=== PATIENT | female | born 1955 | race African-American/Black ===

== ENCOUNTER 2017-06-07 12:33 | Emergency (ER) | payer OTHER ==
--- NOTE | 2017-06-07 13:27 | ER Document Report ---
ED Eye Complaint - General Chief Complaint: Redness of Eye Stated Complaint: EYE PAIN Time Seen by Provider: 06/07/17 13:10 Mode of Arrival: Ambulatory Information source: Patient Notes: Patient is a 61-year-old female who presents to the ER today for 1 week of redness to her right eye. Patient also admits to 1 day of headache "like a headband is on my head but it is not." Patient denies any blurred vision, pain to the eyes, numbness or tingling anywhere, weakness anywhere. Patient denies any injury to her eye. She denies any history of migraines. - Related Data Allergies/Adverse Reactions: No Known Allergies Allergy (Unverified 06/07/17 12:34) Past Medical History - General Information source: Patient - Social History Smoking Status: Never Smoker Chew tobacco use (# tins/day): No Frequency of alcohol use: None Drug Abuse: None Family History: Reviewed & Not Pertinent Patient has suicidal ideation: No Patient has homicidal ideation: No Renal/ Medical History: Denies: Hx Peritoneal Dialysis Review of Systems - Review of Systems Constitutional: No symptoms reported EENT: See HPI Cardiovascular: No symptoms reported Respiratory: No symptoms reported Gastrointestinal: No symptoms reported Genitourinary: No symptoms reported Female Genitourinary: No symptoms reported Musculoskeletal: No symptoms reported Skin: No symptoms reported Hematologic/Lymphatic: No symptoms reported Neurological/Psychological: See HPI Physical Exam - Vital signs Vitals: Temp Pulse Resp BP Pulse Ox 98.5 F 57 L 20 139/78 H 98 06/07/17 12:38 06/07/17 12:38 06/07/17 12:38 06/07/17 12:38 06/07/17 12:38 - Notes Notes: PHYSICAL EXAMINATION: GENERAL: Well-appearing and in no acute distress. HEAD: Atraumatic, normocephalic. EYES: Subconjunctival hemorrhage to medial portion of right eye, not crossing over into the cornea, less than 1/2 scleral involvment, pupils equal round and reactive to light, extraocular movements intact, sclera anicteric ENT: ear canals without erythema or foreign body, TMs pearly ware with good bony landmarks, nares patent, oropharynx clear without exudates. Moist mucous membranes. no tenderness to orbits or maxillary sinuses NECK: Normal range of motion, supple without lymphadenopathy LUNGS: CTAB and equal. No wheezes rales or rhonchi. HEART: Regular rate and rhythm without murmurABDOMEN: Soft, no tenderness. No guarding, no rebound BACK: no vertebral tenderness, normal ROM GI/: no CVA tenderness EXTREMITIES: Normal range of motion, no pitting edema. No cyanosis. NEUROLOGICAL: Cranial nerves grossly intact. Normal sensory/motor exams. PSYCH: Normal mood, normal affect. SKIN: Warm, Dry, normal turgor, no rashes or lesions noted Course - Vital Signs Vital signs: Temp Pulse Resp BP Pulse Ox 98.3 F 57 L 16 138/68 H 98 06/07/17 15:15 06/07/17 12:38 06/07/17 15:15 06/07/17 15:15 06/07/17 15:15 Discharge - Discharge Clinical Impression: Subconjunctival hemorrhage of right eye Headache Qualifiers: Headache type: unspecified Headache chronicity pattern: acute headache Intractability: not intractable Qualified Code(s): R51 - Headache Condition: Stable Disposition: HOME, SELF-CARE Additional Instructions: Return immediately for any new or worsening symptoms. Follow up with claim administrator, call tomorrow to make followup appointment. Referrals: ALBERTA PACK DO [ACTIVE STAFF] - Follow up as needed
--- NOTE | 2017-06-07 14:10 | RADIOLOGY REPORT (SQ) ---
EXAM DESCRIPTION: CT HEAD WITHOUT COMPLETED DATE/TIME: 06/07/2017 1:47 pm REASON FOR STUDY: vice like headache, bloodshot eye COMPARISON: None. TECHNIQUE: Axial images acquired through the brain without intravenous contrast. Images reviewed wi th bone, brain and subdural windows. Images stored on PACS. All CT scanners at this facility use dose modulation, iterative reconstruction, and/or weight based d osing when appropriate to reduce radiation dose to as low as reasonably achievable (ALARA). [facility]: Dose Right [facility]: CareDose [facility]: Dose Right [facility]: Teradose 4D [facility]: Bug Music RADIATION DOSE: 64.6 mGy. LIMITATIONS: None. FINDINGS: VENTRICLES: Normal size and contour. CEREBRUM: No masses. No hemorrhage. No midline shift. No evidence for acute infarction. Normal gra y/white matter differentiation. No areas of low density in the white matter. CEREBELLUM: No masses. No hemorrhage. No alteration of density. No evidence for acute infarction. EXTRAAXIAL SPACES: No fluid collections. No masses. ORBITS AND GLOBE: No intra- or extraconal masses. Normal contour of globe without masses. CALVARIUM: No fracture. PARANASAL SINUSES: No fluid or mucosal thickening. SOFT TISSUES: No mass or hematoma. OTHER: No other significant finding. IMPRESSION: NORMAL BRAIN CT WITHOUT CONTRAST. EVIDENCE OF ACUTE STROKE: NO. COMMENT: Quality ID # [id number]: Final reports with documentation of one or more dose reduction techniques (e.g., Automated exposure control, adjustment of the mA and/or kV according to patient size, use of iterative reconstruction technique) TECHNICAL DOCUMENTATION: JOB ID: [id number] [employer]- All Rights Reserved
[2017-06-07] MEDS ORDERED: PROCHLORPERAZINE MALEATE 10 MG TABLET PO ONE (14:43)
[2017-06-07] MEDS ORDERED: KETOROLAC TROMETHAMINE 60 MG/2 ML SDV IM ONE (14:43)
[2017-06-07] MEDS ORDERED: IBUPROFEN 800 MG TABLET PO ONE (14:48)
[2017-06-07 15:18] VITALS: BP 138/68
== END 2017-06-07 15:18 | disposition home or self-care (01) ==
LOC: ER 12:33
DX: H11.31 Conjunctival hemorrhage, right eye (principal); R51 Headache; H57.11 Ocular pain, right eye
CPT/HCPCS: 70450; 99283